=== PATIENT | female | born 1945 | race Caucasian/White ===

== ENCOUNTER → 2021-02-01 08:18 | Outpatient (CLI) | payer MEDICARE, BC, SELFPAY ==
--- NOTE | 2021-02-01 08:46 | RAD_ITS ---
STUDY: X-RAY CHEST REASON FOR EXAM: Female, 75 years old. Chest pain TECHNIQUE: PA and lateral views of the chest. COMPARISON: None. FINDINGS: The lungs are clear and expanded. Scattered calcified granulomas. There is no demonstrated pleural abnormality. There is borderline cardiomegaly. Normal mediastinum and gissel. Normal visualized pulmonary arteries. There is atherosclerotic tortuosity of the aortic arch and descending thoracic aorta. There are diffuse degenerative changes of the visualized thoracic spine. Normal visualized ribs, clavicles, and shoulders. There is no demonstrated abnormality of the visualized soft tissue structures of the upper abdomen. RAD/Chest PA and Lateral IMPRESSION: Borderline cardiomegaly. Electronically Signed: Nader Emery MD at 9:04 EDT , Service support ,
[2021-02-01 09:04] LABS: International Normalized Ratio 0.9; Prothrombin Time (Protime)PT. 11.9 SECONDS (11.7-14.9)
[2021-02-01 09:05] LABS: Partial Thromboplast Time 28.1 Seconds (24.1-36.2)
[2021-02-01 09:21] LABS: AST(SGOT) 22 U/L (15-37); Alanine Aminotransfer ALT/SGPT 36 U/L (13-56); Albumin, Serum 3.2 g/dL (3.2-5.0); Alkaline Phosphatase 111 U/L (45-117); Anion Gap 8 (5-15); BUN 25 mg/dL (7-18); BUN/Creat Ratio 22.1 RATIO (10-20); Bilirubin, Direct 0.11 mg/dL (0.00-0.30); Calcium,Total 11.2 mg/dL (8.5-10.1); Chloride 104 mmol/L (98-107); Cholesterol 219 mg/dL (200); Creatinine, Serum 1.13 mg/dL (0.55-1.02); EST Glomerular Filtration Rate 50 mL/min (>60); Est Glom Filt Rate - Afr Amer 61 mL/min (>60); Globulin 3.9 g/dL (2.2-4.2); Glucose 264 mg/dL (74-106); High Density Lipoprotein 34 mg/dL; Potassium 4.8 mmol/L (3.5-5.1); Protein, Total 7.1 g/dL (6.4-8.2); Sodium Level 131 mmol/L (136-145); Triglycerides 306 mg/dL; Very Low Density Lipoprotein 61 mg/dL (5-40)
== END ==
PROVIDERS: Referring Provider Internal Medicine Cardiovascular Disease; Visit Provider Internal Medicine Cardiovascular Disease
DX: I10 Essential (primary) hypertension (principal); R07.9 Chest pain, unspecified; R06.02 Shortness of breath; E78.00 Pure hypercholesterolemia, unspecified; I25.709 Atherosclerosis of coronary artery bypass graft(s), unspecified, with unspecified angina pectoris
CPT/HCPCS: 36415; 71046; 80048; 80061; 80076; 85610; 85730

== ENCOUNTER → 2021-02-09 13:55 | Outpatient (CLI) | payer MEDICARE, BC, SELFPAY ==
--- NOTE | 2021-02-09 13:56 | ECHOD_ITS ---
Reason For Study: Chest Pain Procedure This was a 2D Doppler, Color Flow transthoracic echocardiogram. The study was technically difficult. Exam performed in department. Left Ventricle Normal LV size. Left ventricular systolic function is normal. The estimated ejection fraction is 65 %. Diastolic function is indeterminate. No regional wall motion abnormalities noted. Right Ventricle Normal RV size. Normal systolic function. Atria Normal left atrium. Normal right atrium. No doppler evidence for ASD. Mitral Valve There is no mitral annular calcification. Normal mitral valve. Trivial mitral valve insufficiency. Tricuspid Valve Normal tricuspid valve. Trivial tricuspid valve insufficiency. Unable to estimate RV systolic pressure/pulmonary artery pressure due to technically difficult study. Aortic Valve Trisinus/trileaflet aortic valve. Mild diffuse aortic valve thickening. Pulmonic Valve The pulmonic valve is not well visualized. Great Vessels The aortic root is not well visualized. Pericardium/Pleural No pericardial effusion. MMode/2D Measurements & Calculations LVIDd: 4.7 cm IVSd: 1.1 cm LA dimension: 3.0 cm LVIDs: 2.9 cm LVPWd: 1.1 cm FS: 39.0 % LAV(MOD-bp): 43.6 ml LA A4 area: 15.7 cm2 RA A4 area: 14.8 cm2 LAV(MOD-bp) Indexed: 21.8 ml/m2 LAV(MOD-sp2): 36.1 ml LAV(MOD-sp4): 45.0 ml Time Measurements MV dec time: 0.34 sec Doppler Measurements & Calculations MV E max gustavo: 60.8 cm/sec Lat Peak E' Gustavo: 3.9 cm/sec Med Peak E' Gustavo: 8.8 cm/sec MV A max gustavo: 114.3 cm/sec E/E' lat: 15.5 E/E' med: 6.9 MV E/A: 0.53 MV V2 max: 139.6 cm/sec MV P1/2t max gustavo: 97.3 cm/sec Ao V2 max: 152.5 cm/sec MV max P.8 mmHg MV P1/2t: 60.6 msec Ao max P.3 mmHg MV V2 mean: 67.6 cm/sec MV dec slope: 470.1 cm/sec2 MV mean P.2 mmHg MVA(P1/2t): 3.6 cm2 MV V2 VTI: 33.4 cm LV V1 max: 93.2 cm/sec PA V2 max: 87.6 cm/sec LV V1 max P.5 mmHg ECHO/Echo Complete Interpretation Summary The study was technically difficult. Left ventricular systolic function is normal. The estimated ejection fraction is 65 %. Trivial mitral valve insufficiency. Trivial tricuspid valve insufficiency. Mild diffuse aortic valve thickening. Unable to estimate RV systolic pressure/pulmonary artery pressure due to techni katiuska difficult study. Diastolic function is indeterminate. Ordering Physician: Carlos Rondon Referring Physician: Carlos Rondon Performed By: Jarek Holt RCS
== END ==
PROVIDERS: Referring Provider Internal Medicine Cardiovascular Disease; Visit Provider Internal Medicine Cardiovascular Disease
DX: I25.709 Atherosclerosis of coronary artery bypass graft(s), unspecified, with unspecified angina pectoris (principal); R06.02 Shortness of breath; R07.9 Chest pain, unspecified
CPT/HCPCS: 93306

== ENCOUNTER 2021-02-22 07:45 | Day surgery (SDC) | payer MEDICARE, BC, SELFPAY ==
[2021-02-21 07:27] VITALS: BMI 46.0
--- NOTE | 2021-02-21 13:14 | PCM.HP.BLA ---
History and Physical Date of Admission: 02/22/21 [facility] [address] [place] [address] [phone] OFFICE VISITDate of Service: 01/27/21 MR#:[id number]: LISA DE LA PAZ #:[id number]:1945 Provider:Vickie Walton/Sex: 75/F Location:[facility]:Signed HPI HPI History of Present Illness Surgical H&P: Yes Details: This is a 75-year-old white female who presents today for outpatient cardiovascular consultation based upon concerns of minimal exertional chest discomfort/heaviness/left upper extremity discomfort/shortness of breath/dyspnea/cold sweats . She had previously been evaluated in July 2009. At that time she had worked through noninvasive evaluation including a transthoracic echocardiogram, a pharmacologic stress nuclear imaging study, and a diagnostic cardiac catheterization. 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 There was impaired relaxation of the left ventricle. Her previous pharmacologic stress nuclear imaging study was reported as negative. However based upon ongoing concerns she underwent a diagnostic cardiac catheterization at 08-04-2009 at [facility]. Per the report the left ventricle was normal with an LVEF of 63%, the LAD, first diagonal branch, and LCx were reported as having 10% stenosis. The RCA was reported as being angiographically normal. She notes now, after being a uterine carcinoma survivor at 5 years out, that over the last 3+ months she has been developing the aforementioned symptoms. She states with very minimal exertional activity she can develop a chest heaviness/left upper extremity discomfort, become short of breath and dyspneic, break out in a cold sweat , and noticed relief of her symptoms when she is back at rest. She has not had symptoms at rest or at night. There is been no orthopnea or PND or ongoing peripheral pitting edema. There is been no near syncope or syncope. She had an ECG in the office today. She was noted be in sinus rhythm with poor R wave progression. To the best of her knowledge she has not had any other cardiovascular testing performed. She states she follows with her PCP in [place]. She has had her lipids checked. She knows they are elevated. However she has declined medical therapy with statins based on concerns of intolerance. Intake Vital Signs 01/27/21 13:40 Height 5 ft Weight: 236 lb BMI 46.0 BP 187/94 H Respiration 18 Pulse 88 Pulse Oximetry (%) 97 Intake Visit Reasons: Chest pressure/ SOB/Fatigue/Self ref. Allergies Penicillins Allergy (Unknown, Verified 01/27/21 13:40) Swelling/Hives Medications aspirin 81 mg chewable tablet 81 mg PO DAILY 01/18/21 [History Confirmed 01/27/21] atenolol 50 mg tablet 50 mg PO DAILY 01/18/21 [History Confirmed 01/27/21] insulin NPH isoph U-100 human 100 unit/mL (3 mL) subcutaneous pen 25 unit SUBCUT BID 01/18/21 [History Confirmed 01/27/21] insulin regular human 100 unit/mL injection solution 25 unit SUBCUT BID 01/18/21 [History Confirmed 01/27/21] lisinopril 40 mg tablet 40 mg PO DAILY 01/18/21 [History Confirmed 01/27/21] multivitamin 1 tab PO DAILY 01/18/21 [History Confirmed 01/27/21] cholecalciferol (vitamin D3) 125 mcg (5,000 unit) capsule 125 mcg PO DAILY 01/27/21 [History Confirmed 01/27/21] isosorbide mononitrate 30 mg tablet,extended release 24 hr 30 mg PO DAILY #30 tab 01/27/21 [Rx Confirmed 01/27/21] Ejection fraction %: 60 to 64 [facility] Medical History (Updated 01/27/21 @ 14:[address] Carlos Rondon MD) CAD (coronary artery disease) of artery bypass graft Essential hypertension Morbid obesity Pure hypercholesterolemia Type 2 diabetes mellitus Uterine cancer Surgical History History of hemorrhoidectomy History of hysterectomy History of tonsillectomy Family History Father Heart disease History of prostate cancer Mother Diabetes Heart disease Social History Smoking Status: Never smoker alcohol intake: never substance use type: does not use ROS Const Const: Positive for fatigue (New onset past 3 nonths with little activity); Negative for weakness, headache(s), frequent falls, difficulty sleeping or excessive sweating Eyes Eyes: Negative for loss of peripheral vision, transient loss of vision, blurry vision, double vision or tunnel vision ENT ENT: Negative for headache(s), dizziness, Nosebleed/epistaxis or balance problems Cardio Chest Pain: Yes (LUE numbness x 1 episode while standing at the stove) Palpitations: No Edema: None Muscle aches with walking: None Additional Details: Episodes of breaking out in cold sweat with activity Resp Respiratory: Positive for SOB with activity (with little activity and she becomes nauseated); Negative for SOB at rest, SOB orthopnea\SOB lying down, Cough or paroxysmal nocturnal dyspnea GI GI: Negative nausea, vomiting, heartburn or black,tarry stools : Negative for hematuria Musc Musc: Negative for muscle aches/ myalgia, muscle weakness, joint pain or balance problems Skin Skin: Negative non-healing lesions, rash or unusual bruising Neuro Neuro: Negative for dizziness, lightheadedness, near syncope, syncope, orthostatic symptoms, frequent falls, headache(s), weakness, blurry vision, double vision or lack of coordination Neil Hematologic/Lymphatic: Negative for easy bleeding or easy bruising Endo Endo: Positive for fatigue (New onset past 3 nonths with little activity); Negative for excessive sweating or increased thirst/drinking Psych Psych: Negative for anxiety or depression Allergy Allergy/Immunology: Negative for hives and Negative for rash Cardiology Exam Const Appearance: cooperative, healthy appearing, comfortable, no acute distress, well developed and well groomed Nutritional Appearance: obese Orientation: alert, awake and oriented x3 Head Head: normal to inspection, normocephalic and atraumatic Ears: hearing grossly normal bilaterally Nose: external nose normal Face and Sinus: face symmetric Eyes Eyelids: eyelids normal Conjunctivae: conjunctivae normal Pupils: PERRL EOM: EOM intact bilaterally Neck Neck: normal visual inspection Carotids: normal carotid upstroke Chest Chest inspection: normal inspection of the chest, symmetric chest movement and normal respiratory effort Auscultation: Bilateral: Clear to Auscultation Cardio Palpation: normal PMI Rate: regular rate Rhythm: regular rhythm Heart sounds: S1 normal and S2 normal GI GI: normal to inspection, soft, bowel sounds present and obese Neuro General: patient alert, patient awake, patient oriented x3 and moves all extremities Skin Skin: no rashes or lesions noted Extremities Pulses: Normal: Right Radial Pulse and Left Radial Pulse Lower Extremity Edema: None: Bilateral Psych Psychological: normal affect Assessment and Plan Assessment and Plan (1) CAD (coronary artery disease) of artery bypass graft: Status: Acute Orders: Orders: Left Heart Cath/COR/LV Percut Today Basic Metabolic Profile (BMP) Today Lipid Profile 1 Day Liver Profile 1 Day Partial Thromboplast Time Today Prothrombin Time w/INR Today Echo Complete Today CBC W/Diff, Automated Today Chest PA and Lateral Today Plan - Dr. Carlos Rondon MD: At the present time she does have a history of CAD. In the past it was been described as very minimal to mild. However her symptoms at this time do appear to be concerning worsening angina pectoris. Thus the present time she will start medical therapy which will include isosorbide mononitrate at 30 mg a day. She will be scheduled for further evaluation with a transthoracic echocardiogram to reassess her left ventricular wall motion systolic function and a diagnostic cardiac catheterization to assess her coronary anatomy. The procedure and risk were discussed with her. She was agreeable to this approach. (2) Chest pain: Status: Acute Orders: Orders: 12 Lead EKG performed by BMS Today Left Heart Cath/COR/LV Percut Today 12 Lead EKG performed by BMS Today Basic Metabolic Profile (BMP) Today Lipid Profile 1 Day Liver Profile 1 Day Partial Thromboplast Time Today Prothrombin Time w/INR Today Echo Complete Today CBC W/Diff, Automated Today Chest PA and Lateral Today Plan - Dr. Carlos Rondon MD: Again she is complaining of chest pain. The concern is this is worsening angina pectoris. She will continue evaluation care as noted above. (3) SOB (shortness of breath): Status: Acute Orders: Orders: 12 Lead EKG performed by BMS Today Left Heart Cath/COR/LV Percut Today 12 Lead EKG performed by BMS Today Basic Metabolic Profile (BMP) Today Lipid Profile 1 Day Liver Profile 1 Day Partial Thromboplast Time Today Prothrombin Time w/INR Today Echo Complete Today CBC W/Diff, Automated Today Chest PA and Lateral Today Plan - Dr. Carlos Rondon MD: Her shortness of breath may be multifactorial. Certainly there is a concern from a cardiovascular standpoint for which she will undergo further evaluation care. She also admits she notes her shortness of breath can potentially come from her combination of age, obesity, and diminished functional status as well. (4) Pure hypercholesterolemia: Status: Acute Orders: Orders: 12 Lead EKG performed by BMS Today Left Heart Cath/COR/LV Percut Today 12 Lead EKG performed by BMS Today Basic Metabolic Profile (BMP) Today Lipid Profile 1 Day Liver Profile 1 Day Partial Thromboplast Time Today Prothrombin Time w/INR Today Echo Complete Today CBC W/Diff, Automated Today Chest PA and Lateral Today Plan - Dr. Carlos Rondon MD: She will have her lipids rechecked. She does not want to take statin medication based on previous concerns of intolerance. She may have to consider nonstatin therapy to assist with her cardiovascular risk. (5) Essential hypertension: Status: Acute Orders: Orders: Left Heart Cath/COR/LV Percut Today Basic Metabolic Profile (BMP) Today Lipid Profile 1 Day Liver Profile 1 Day Partial Thromboplast Time Today Prothrombin Time w/INR Today Echo Complete Today CBC W/Diff, Automated Today Chest PA and Lateral Today Plan - Dr. Carlos Rondon MD: She has a history of hypertension. She believes her blood pressures have been better controlled. Based upon her PCP note from earlier this year in [place] her blood pressure at that time was reported at approximately 130/72 mmHg. She will continue her medical therapy as noted above with follow-up of her blood pressures and adjustment of medications as deemed necessary. Plan Details Other Medications: New: isosorbide mononitrate ER 30 mg PO DAILY 30 tabs 3RF Other Orders: Orders: 12 Lead EKG performed by BMS Today R53.83 Left Heart Cath/COR/LV Percut Today I20.9 12 Lead EKG performed by BMS Today R53.83 Basic Metabolic Profile (BMP) Today I20.9 Lipid Profile 1 Day I20.9 Liver Profile 1 Day I20.9 Partial Thromboplast Time Today I20.9 Prothrombin Time w/INR Today I20.9 Echo Complete Today I20.9 CBC W/Diff, Automated Today I20.9 Chest PA and Lateral Today I20.9 Additional Comments: The above was discussed with her and she was agreeable to this approach. Thank you for allowing me to participate in the care of your patient. Please don't hesitate to call if any issues arise. This note was generated using a voice recognition system and there may be incorrect words, spelling or punctuation that were not noted when reviewing the office note prior to saving. Follow Up: 6 Weeks (PFM ) COVID (Procedure Consent) Procedure Criteria Procedure Criteria: Yes Elective The surgeon/proceduralist and patient have discussed in detail the risk of exposure to and/or potential harm posed by the COVID-19 virus with having a surgery/procedure at this time versus the risk of delaying the surgery/procedure. It is not possible to know either the risk of delaying the surgery or procedure or chance of getting an infection with perfect accuracy, but a joint decision was made between the patient and the surgeon/proceduralist to proceed at this time with the scheduled surgery/procedure as indicated on the consent form. Coding Level of Care Code Off vis,new,level 5 Diagnoses CAD (coronary artery disease) of artery bypass graft I25.810 Chest pain R07.9 SOB (shortness of breath) R06.02 Pure hypercholesterolemia E78.00 Essential hypertension I10 Coding Level of Care Code Off vis,new,level 5 Diagnoses CAD (coronary artery disease) of artery bypass graft I25.810 Chest pain R07.9 SOB (shortness of breath) R06.02 Pure hypercholesterolemia E78.00 Essential hypertension I10 Supplemental Info Supplemental Information Labs: No Data to Display Diagnostics: Electrocardiogram Pulmonary: No Data to Display 01/27/21 1442<Electronically signed by Carlos Rondon MD>Date Carlos Rondon MD Cosigner Signature:Date (if applicable) CC: ~ Assessment & Plan Addt'l Comments Addendum: I have examined the patient the following changes are noted: The patient has undergone further evaluation with transthoracic echocardiogram performed on 02-09-2021. The results are as noted below. Interpretation Summary The study was technically difficult. Left ventricular systolic function is normal. The estimated ejection fraction is 65 %. Trivial mitral valve insufficiency. Trivial tricuspid valve insufficiency. Mild diffuse aortic valve thickening. Unable to estimate RV systolic pressure/pulmonary artery pressure due to technically difficult study. Diastolic function is indeterminate. The patient presents for further evaluation with diagnostic cardiac catheterization as previously discussed. The procedure and risks were discussed with her. She was agreeable to this approach.
[2021-02-22 08:03] LABS: Hematocrit 41.1 % (37-47); Mean Corp Hgb Conc 34.1 g/dL (32-36); Mean Corpuscular Hgb 30.4 pg (27.0-32.0); Mean Corpuscular Volume 89.2 fL (81-99); Mean Platelet Vol. 10.2 fl (6.2-12.0); Platelet Count 264 K/mm3 (150-450); RBC Distribution Width CV 13.8 % (11.6-14.6); RBC Distribution Width SD 44.6 fl (35.1-43.9); Red Blood Count 4.61 M/mm3 (4.2-5.4); White Blood Count 9.5 K/mm3 (4.4-11.0)
--- NOTE | 2021-02-22 11:00 | CL.I_ITS ---
Patient Name: LISA DE LA PAZ Study Date: 02/22/2021 Performing: Marlee Guillory MD Ht: 59.84 inches 152 cm : 1945 Wt: 235.89 lbs 107 kg Age: 75 Gender: female BSA: 2 PROCEDURE(S) PERFORMED EJ74-GNP, CORONARY OR GRAFT, INITIAL VESSEL GI07-QSM W OR WO PTCA, SINGLE CORONARY ARTERY CLINICAL PROFILE AND CO-MORBIDITIES Indications: Worsening Angina Heart Failure: None Stress/Imaging Stress/Image Study Performed: No Angina Classification Anginal Classification w/in 2 Weeks: CCS III CAD Presentations: Other: worsening angina CONCLUSIONS FFR in the LAD was 0.94 which is consistent with a stenosis that is better treated medically at this time. Successful PCI of pD1 with JUAN RECOMMENDATIONS DESCRIPTION OF PROCEDURE The patient arrived to the procedure lab. The risks and benefits of the procedure as well as a full d escription of our services here and current unavailability of surgical backup were fully explained to the patient and/or their significant other prior to the catheterization. The Timeout was completed, verifying the correct patient and procedure. The patient's procedural site was prepped and draped in the usual fashion. Local anesthetic was given subcutaneously to right radial region with Lidocaine 2% Using a modified Seldinger technique,arterial access was obtained via the right radial artery, a 6Fr sheath was inserted. Right Coronary Artery selective angiography was then performed in multiple view s using a 5 Fr. 4.0 Brixey catheter. Left Coronary Artery selective angiography was performed in multi ple views using a 5 Fr. 4.0 Brixey catheter. Left Ventriculography was performed in BARNES projection usi ng a 5 Fr. Pigtail catheter. LV to AO pullback pressures were then recorded.The images were reviewed and options discussed. A decision was then made to proceed with an Intervention, IVUS o r other adjunct procedure. XB 3.0 Guide catheter was inserted and engaged into the LCA. The FFR/iFR wire was inserted. Adeno sine was then given per protocol. Pressures and FFR/iFR were then recorded. FFR Ratio Baseline: 0.97 FFR Ratio post Adenosine: 0.96 The FFR/iFR wire was then repositioned to Diag #1 Orsiro 2.25x9 Drug E luting stent was inserted. Angiogram performed post stent deployment. NC Emerge 2.25x8 Balloon cathet er was inserted. Angiogram performed post balloon dilatation. The arterial sheath was pulled and a TR Band was applied for hemostasis w/ 12ml air INTERVENTION INFORMATION LESION SITE: LAD (Mid) Lesion Complexity: High/C, chronic total occlusion: No, lesion at bifurcation: Yes, thrombus present: No, lesion length: 15 mm, culprit lesion: No, Previously treated lesion: No PROCEDURE: FFR FFR in the LAD was 0.94 Lesion Devices: IGT Devices ( Formerly Roma) Coronary FFR Wire Cardinal 6 Fr XB3.0 100cm Guide Catheter LESION SITE: 1st Diagonal (Proximal) Lesion Complexity: High/C, chronic total occlusion: No, lesion at bifurcation: No, thrombus present: No, lesion length: 7 mm, culprit lesion: Yes, Previously treated lesion: No Pre Stenosis: 85 % Pre intervention OLGA flow: 3 PROCEDURE: Drug Eluting Stent with post dilatation Post Stenosis: 0 % Post intervention OLGA flow: 3 Lesion Devices: IGT Devices ( Formerly Roma) Coronary FFR Wire Cardinal 6 Fr XB3.0 100cm Guide Catheter Biotronik [facility] MR JUAN 2.25x9 [employer] NC EMERGE MR 2.25x08 BALLOON COMPLICATIONS No Complications PROCEDURE MEDICATIONS Versed 1 mg IV Fentanyl 50 mcg IV Oxygen: 2 L/min via nasal cannula Brilinta 180 mg PO 02/22/2021 09:47:36 Adenosine drip for FFR 30 ml IV @ 02/22/2021 10:20:25 Heparin given IA 02/22/2021 09:33:05 Heparin 6000 unit(s) IV 02/22/2021 10:11:34 Verapamil 2.5mg, Ntg 100mcgs, 3000 units of Heparin given IA 02/22/2021 09:33:05 SUMMARY OF HEMODYNAMIC DATA Time AIR REST ECG 08:19:12 Art 209/66 (105) 09:25:55 AO 170/69 (107) SA 09:35:11 LV 204/-8, 09:45:15 LV 203/-6, 09:45:22 LV 203/1, 33 09:46:22 LV 201/-7, 09:46:30 LVp 194/-11, 09:46:35 AOp 183/68 (112) 09:46:41 AO 197/73 (121) 09:47:01 Signed By Marlee Guillory MD On 02/22/2021 10:59:20 Marlee Guillory MD
--- NOTE | 2021-02-22 11:21 | CRPHASE1 ---
Patient Communication PHII Cardiac Rehab Discussed with Patient:: Yes Guide to Cardiac Rehab Given to Patient:: Yes Cardiac Rehab Facility Choice List Given to Patient:: Yes - Pt going to [facility] FOR SIX MONTHS IN FEW WEEKS Choice Program Other:: Communication Given to CR Systems Design Engineer:: Wing Guillory - Intervention doctor Refer Phase II Cardiac Rehab:: Yes - To occur after discharge Sessions:: 36 sessions - 3 days/wk, 12 weeks Cardiac Rehabilitation Info Cardiac Rehabilitation Program Information: Cardiac Rehabilitation is important for patients like you who are recovering from a heart problem. Cardiac rehabilitation programs are recognized as integral to the continued care of the patient with coronary heart disease. The cardiac rehabilitation program is designed to optimize a patient's physical, psychological, and social functioning. Health child day care teacher work in cardiac rehabilitation programs and assist you with getting the treatments you need to get stronger and healthier - like exercise, healthy eating habits, and medications. Cardiac rehabilitation has been show to help people with heart problems live longer and have better life enjoyment than people who do not go to cardiac rehabilitation. Please contact the Cardiac Rehabilitation Program at [facility] at in two weeks if you have not heard from them.
--- NOTE | 2021-02-22 11:27 | CRPH1.INSTRU ---
General Education CAD and cardiac anatomy and function:: Patient communicates acknowledgment Explanation of diagnoses and procedures:: Patient communicates acknowledgment Sign/Symptoms of NE:: Patient communicates acknowledgment Antiplatelet therapy: Patient communicates acknowledgment Proper use of NTG-SL: Patient communicates acknowledgment Emergency procedures and activation of EMS: Patient communicates acknowledgment Compliance of all prescribed medications: Patient communicates acknowledgment Overweight/Obesity Patient Overweight/Obesity Risk Factors Are:: Obesity - > or = 30 Recommendations Include:: Weight loss of 5-10%, Reduced calorie diet Overweight/Obesity:: Needs reinforcement Hypertension Recommendations Include:: Maintain BP <130/85, BP <130/80 if diabetic, DASH dietary guidelines, Decrease/maintain normal body weight, Moderation of ETOH Hypertension:: Needs reinforcement Sedentary Patient Sedentary Risk Factors Are:: Lack of regular exercise Recommendations Include:: Aerobic exercise 5-7 times/week for 20-30 minutes continuously, Benefits of regular exercise, Discussed home walking program, Monitored Outpatient Cardiac Rehab Sedentary Response Code:: Needs reinforcement
--- NOTE | 2021-02-22 11:40 | CL.D_ITS ---
Patient Name: LISA DE LA PAZ Study Date: 02/22/2021 Performing: Carlos Rondon MD Ht: 59.84 inches 152 cm : 1945 Wt: 235.89 lbs 107 kg Age: 75 Gender: female BSA: 2 PROCEDURE(S) PERFORMED [id number]-RFO/COR/LV [id number], CORONARY OR GRAFT, INITIAL VESSEL [id number] W OR WO PTCA, SINGLE CORONARY ARTERY CLINICAL PROFILE AND INDICATIONS Indications: Worsening Angina Heart Failure: None Stress/Imaging Stress/Image Study Performed: No Angina Classification Anginal Classification w/in 2 Weeks: CCS III CAD Presentations: Other: worsening angina CONCLUSIONS Elevated Left Ventricular End Diastolic Pressure Normal LV size, wall motion,and systolic function LVEF: by LV gram 60 % Triple vessel CAD of the LAD, DX, and RCA RECOMMENDATIONS Referred for FFR and possible PCI Case discussed / reviewed with Dr. Guillory of Interventional Cardiology DESCRIPTION OF PROCEDURE The patient arrived to the procedure lab. The risks and benefits of the procedure as well as a full d escription of our services here and current unavailability of surgical backup were fully explained to the patient and/or their significant other prior to the catheterization. The Timeout was completed, verifying the correct patient and procedure. The patient's procedural site was prepped and draped in the usual fashion. Local anesthetic was given subcutaneously to right radial region with Lidocaine 2% . Using a modified Seldinger technique, arterial access was obtained via the right radial artery, a 6 Fr sheath was inserted. Right Coronary Artery selective angiography was then performed in multiple v iews using a 5 Fr. 4.0 [place] catheter. Left Coronary Artery selective angiography was performed in mu ltiple views using a 5 Fr. 4.0 [place] catheter. Left Ventriculography was performed in BARNES projection using a 5 Fr. Pigtail catheter. LV to AO pullback pressures were then recorded.The arterial sheath was pulled and a TR Band was applied for hemostasis w/ 12ml air CORONARY ANGIOGRAPHY DOMINANCE: Right Dominant LEFT HEART ASSESSMENT Left Ventricular Ejection Fraction: by LV Gram 60 % Normal LV wall motion Elevated Left Ventricular End Diastolic Pressure LVEDP: 27 mmHg LEFT MAIN: Angiographically normal LEFT ANTERIOR DESCENDING ARTERY: PROX LAD: pre DX: smooth: 25 - 50 % Stenosis MID LAD: s/p DX: smooth: 25 - 50 % Stenosis DIAGONAL 2: Proximal: hazy: 85 % Stenosis CIRCUMFLEX ARTERY: Angiographically normal RIGHT CORONARY ARTERY: PROX RCA: smooth: eccentric: 25 % Stenosis AORTIC ROOT: Angiographically normal COMPLICATIONS No Complications PROCEDURE MEDICATIONS Versed 1 mg IV Fentanyl 50 mcg IV Oxygen: 2 L/min via nasal cannula Brilinta 180 mg PO 02/22/2021 09:47:36 Adenosine drip for FFR 30 ml IV @ 02/22/2021 10:20:25 Heparin given IA 02/22/2021 09:33:05 Heparin 6000 unit(s) IV 02/22/2021 10:11:34 Verapamil 2.5mg, Ntg 100mcgs, 3000 units of Heparin given IA 02/22/2021 09:33:05 SUMMARY OF HEMODYNAMIC DATA Time AIR REST ECG 08:19:12 Art 209/66 (105) 09:25:55 AO 170/69 (107) SA 09:35:11 LV 204/-8, 30 09:45:15 LV 203/-6, 27 09:45:22 LV 203/1, 33 09:46:22 LV 201/-7, 27 09:46:30 LVp 194/-11, 30 09:46:35 AOp 183/68 (112) 09:46:41 AO 197/73 (121) 09:47:01 RM AIR REST 10:59:07 Signed By Carlos Rondon MD On 02/22/2021 11:39:37 Carlos Rondon MD
[2021-02-22 15:04] VITALS: BMI 47.0
[2021-02-22 15:06] VITALS: PULSE 63
--- NOTE | 2021-02-22 15:14 | PCS.PANDOC ---
PANDEMIC DOCUMENTATION INITIATED: Date: 01/03/2021 Time: 190
[2021-02-22 15:24] VITALS: BP 167/68; PULSE 59; RESP 16; TEMP 36.6; O2SAT 98
[2021-02-22] MEDS: 0.9% Normal Saline 1,000 ML 60 ML IV (15:37)
[2021-02-22] MEDS: Insulin NPH Human 100 UNITS/ML PEN 25 UNITS SC (16:22)
[2021-02-22] MEDS: Insulin Lispro 100 UNIT/ML INSULN.PEN 25 UNIT SC (16:22)
[2021-02-22 16:30] LABS: Bedside Glucose 233 mg/dL (70-110)
--- NOTE | 2021-02-22 17:47 | PN.CARD_ITS ---
Subjective Subjective The patient underwent diagnostic cardiac catheterization earlier this day. She subsequently received diagonal branch PCI. She appears to be resting comfortably at this time with no acute symptoms. Objective Data Vital Signs: Vital Signs Temp Pulse Resp BP Pulse Ox 97.9 F 59 L 16 167/68 H 98 02/22/21 15:24 02/22/21 15:24 02/22/21 15:24 02/22/21 15:24 02/22/21 15:24 Oxygen Delivery Method Room Air Weight: 240 lb 9 oz Body Mass Index (BMI) 47.0 Lab / Micro Data Result Diagrams: 02/22/21 07:53 Labs: Laboratory Results - last 24 hr 02/22/21 07:53: WBC 9.5, RBC 4.61, Hgb 14.0, Hct 41.1, MCV 89.2, MCH 30.4, MCHC 34.1, RDW Std Deviation 44.6 H, RDW Coeff of Roderick 13.8, Plt Count 264, MPV 10.2 02/22/21 16:20: POC Glucose 233 H Cardiology Labs/Tests 02/22/21 07:53: WBC 9.5, RBC 4.61, Hgb 14.0, Hct 41.1, MCV 89.2, MCH 30.4, MCHC 34.1, Plt Count 264, MPV 10.2 Rhythm: Sinus rhythm Cardiac Cath: CONCLUSIONS Elevated Left Ventricular End Diastolic Pressure Normal LV size, wall motion,and systolic function LVEF: by LV gram 60 % Triple vessel CAD of the LAD, DX, and RCA RECOMMENDATIONS Referred for FFR and possible PCI Case discussed / reviewed with Dr. Guillory of Interventional Cardiology DESCRIPTION OF PROCEDURE The patient arrived to the procedure lab. The risks and benefits of the pr ocedure as well as a full description of our services here and current unavailability of surgical backup were fully explained to the patient and/or their significant other prior to the catheterization. The Timeout was completed, verifying the correct patient and procedure. The patient's procedural site was prepped and draped in the usual fashion. Local anesthetic was given subcutaneously to right radial region with Lidocaine 2%. Using a modified Seldinger technique, arterial access was obtained via the right radial artery, a 6Fr sheath was inserted. Right Coronary Artery selective angiography was then performed in multiple views using a 5 Fr. 4.0 [place] catheter. Left Coronary Artery selective angiography was performed in multiple views using a 5 Fr. 4.0 [place] catheter. Left Ventriculography was performed in BARNES projection using a 5 Fr. Pigtail catheter. LV to AO pullback pressures were then recorded.The arterial sheath was pulled and a TR Band was applied for hemostasis w/ 12ml air CORONARY ANGIOGRAPHY DOMINANCE: Right Dominant LEFT HEART ASSESSMENT Left Ventricular Ejection Fraction: by LV Gram 60 % Normal LV wall motion Elevated Left Ventricular End Diastolic Pressure LVEDP: 27 mmHg LEFT MAIN: Angiographically normal LEFT ANTERIOR DESCENDING ARTERY: PROX LAD: pre DX: smooth: 25 - 50 % Stenosis MID LAD: s/p DX: smooth: 25 - 50 % Stenosis DIAGONAL 2: Proximal: hazy: 85 % Stenosis CIRCUMFLEX ARTERY: Angiographically normal RIGHT CORONARY ARTERY: PROX RCA: smooth: eccentric: 25 % Stenosis AORTIC ROOT: Angiographically normal COMPLICATIONS No Complications PCI: PROCEDURE(S) PERFORMED [id number], CORONARY OR GRAFT, INITIAL VESSEL [id number] W OR WO PTCA, SINGLE CORONARY ARTERY CLINICAL PROFILE AND CO-MORBIDITIES Indications: Worsening Angina Heart Failure: None Stress/Imaging Stress/Image Study Performed: No Angina Classification Anginal Classification w/in 2 Weeks: CCS III CAD Presentations: Other: worsening angina CONCLUSIONS FFR in the LAD was 0.94 which is consistent with a stenosis that is better treated medically at this time. Successful PCI of pD1 with JUAN Physical Exam Const alert, oriented x3, no apparent distress and healthy appearing Orientation / Consciousness: awake HEENT normocephalic, head/scalp atraumatic and hearing grossly normal bilaterally Eyes PERRL, EOMs intact bilaterally and conjunctivae normal Neck full ROM, supple and no JVD Resp clear to auscultation bilaterally Cardio regular rate, regular rhythm, S1 normal heart sound and S2 normal heart sound GI normal to inspection, nondistended, normoactive bowel sounds Extremity Peripheral Pulses: Yes radial pulses present right (No obvious bruits: No obvious hematoma) 2+ Skin no rashes or lesions noted Psych mental status grossly normal Assessment & Plan Assessment/Plan (1) Atherosclerotic heart disease of [place] coronary artery without angina pectoris: PLAN: The patient has been diagnosed with CAD. She has been on medical management. She has now undergone diagonal branch PCI. She will continue outpatient follow-up and plans for outpatient cardiac rehabilitation. (2) Presence of stent in coronary artery: PLAN: The patient underwent FFR of the LAD which was considered negative. She subsequently underwent diagonal branch PCI. She will continue medical therapy and follow-up. (3) Pure hypercholesterolemia: PLAN: The patient will continue medical management. (4) Essential hypertension: PLAN: The patient's blood pressure will be followed and she will continue medical therapy as deemed appropriate. Addt'l Comments This note was generated using a voice recognition system and there may be incorrect words, spelling or punctuation that were not noted when reviewing the office note prior to saving.
[2021-02-22 18:02] VITALS: O2SAT 97
[2021-02-22 19:00] VITALS: PULSE 60
[2021-02-22 21:25] VITALS: BP 146/62; PULSE 65; RESP 18; TEMP 36.7; O2SAT 98
[2021-02-22] MEDS: TICAGRELOR 90 MG TABLET PO (21:41)
[2021-02-22] MEDS: Atorvastatin Calcium 20 MG Tablet PO (21:41)
[2021-02-22] MEDS: Acetaminophen 325 MG Tablet 650 MG PO (21:41)
[2021-02-22 21:55] LABS: Bedside Glucose 122 mg/dL (70-110)
[2021-02-23 02:58] VITALS: PULSE 47
[2021-02-23 03:27] VITALS: BP 141/66; PULSE 59; RESP 18; TEMP 36.4; O2SAT 98
[2021-02-23 07:14] LABS: Absolute Lymphocyte Count 1.48 X10^3/uL (0.83-4.51); Absolute Neutrophil Count 4.6 X10^3/uL (2.0-7.7); Basophil# 0.07 X10^3/uL; Eosinophil# 0.19 X10^3/uL; Eosinophils% 2.8 % (0-5); Hematocrit 37.2 % (37-47); Hemoglobin 12.8 g/dL (12.0-15.0); Lymphocyte # 1.48 X10^3/ul (0.83-4.51); Lymphocyte % 21.5 % (19-41); Mean Corp Hgb Conc 34.4 g/dL (32-36); Mean Corpuscular Volume 87.3 fL (81-99); Mean Platelet Vol. 10.3 fl (6.2-12.0); Monocyte# 0.58 X10^3/uL; Monocyte% 8.4 % (0-10); NRBC Flagged by Analyzer 0 % (0-5); Neutrophil # 4.55 X10^3/uL (2.7-7.7); Neutrophil % 66.2 % (47-70); Platelet Count 212 K/mm3 (150-450); RBC Distribution Width CV 14.1 % (11.6-14.6); Red Blood Count 4.26 M/mm3 (4.2-5.4); White Blood Count 6.9 K/mm3 (4.4-11.0)
[2021-02-23 07:19] VITALS: PULSE 58
[2021-02-23 07:49] LABS: ALB/GLOB Ratio 1.1 RATIO (0.9-2.4); AST(SGOT) 23 U/L (15-37); Alanine Aminotransfer ALT/SGPT 30 U/L (13-56); Albumin, Serum 3.6 g/dL (3.2-5.0); Alkaline Phosphatase 77 U/L (45-117); Anion Gap 8 (5-15); BUN 20 mg/dL (7-18); Calcium,Total 10.2 mg/dL (8.5-10.1); Chloride 107 mmol/L (98-107); Creatinine, Serum 1.11 mg/dL (0.55-1.02); EST Glomerular Filtration Rate 51 mL/min (>60); Est Glom Filt Rate - Afr Amer 62 mL/min (>60); Estimated Creatinine Clearance 32.42 ml/min; Globulin 3.4 g/dL (2.2-4.2); Glucose 197 mg/dL (74-106); Potassium 4.5 mmol/L (3.5-5.1); Sodium Level 138 mmol/L (136-145)
[2021-02-23 08:14] VITALS: BP 168/69; PULSE 66; RESP 16; TEMP 36.6; O2SAT 92
[2021-02-23] MEDS: Atenolol 50 MG Tablet PO (08:17)
[2021-02-23] MEDS: Aspirin 81 MG TAB.CHEW PO (08:17)
[2021-02-23] MEDS: Multivitamins,Therapeutic Tablet 1 TABLET PO (08:17)
[2021-02-23] MEDS: Isosorbide Mononitrate 30 MG Tablet PO (08:17)
[2021-02-23] MEDS: Lisinopril 40 MG Tablet PO (08:17)
[2021-02-23] MEDS: TICAGRELOR 90 MG TABLET PO (08:17)
[2021-02-23] MEDS: Cholecalciferol (VIT D3) 25 MCG TABLET (1,000 UNITS) 125 MCG PO (08:17)
[2021-02-23] MEDS: Insulin NPH Human 100 UNITS/ML PEN 25 UNITS SC (08:20)
[2021-02-23] MEDS: Insulin Lispro 100 UNIT/ML INSULN.PEN 25 UNIT SC (08:21)
[2021-02-23 08:30] LABS: Bedside Glucose 207 mg/dL (70-110)
--- NOTE | 2021-02-23 08:31 | PCM.DC ---
Discharge Instructions Diet Discharge Diet: Low fat / Low cholesterol and 1800 Calorie Control Diet Activity Discharge Activity: May Not Drive (for 48 hours), May Shower (today) and May Take a Tub Bath (in 7 days) Lifting Restrictions: avoid heavy exertional activity x 2 weeks Dressing / Incision Call your doctor if your incision/area has: Continuous Slow Oozing, Sudden Increased Bleeding, Increased Pain/ Swelling, Increased Redness, Foul Smelling Discharge and Swelling at the incision site Call your doctor if you observe: Fever of 101 or Higher, Shortness of breath, Fainting spells, Chest pain and Increased palpitations (irregular heartbeat) Remove Dressing in: 1 day Cleanse incision/area with: Soap & Water Follow Up Care Please Follow Up With: Mary Gonzales, PA When: 03/14/2021 @ 9:00 AM Test Results: Test results from this visit will be discussed in further detail at your follow-up appointment, if applicable. Discharge Plan Admission Primary Reason for Your Visit: Chest Pain Evaluation with Cardiac Catheterization Attending Provider: Carlos Rondon Discharge Orders/Prescriptions Prescriptions: New Brilinta 90 mg Tablet 90 mg PO BID Qty: 60 RF: 11 Brilinta 90 mg tablet 90 mg PO BID Qty: 60 RF: 11 nitroglycerin 0.4 mg tablet, sublingual 0.4 mg sublingual Q5M PRN (Reason: chest pain) Qty: 90 RF: 6 nitroglycerin 0.4 mg Tablet, Sublingual 0.4 mg sublingual Q5M PRN (Reason: Cardiac/Chest Pain) Qty: 90 RF: 6 Continued cholecalciferol (vitamin D3) 125 mcg (5,000 unit) capsule 125 mcg PO DAILY RF: 0 isosorbide mononitrate 30 mg tablet extended release 24 hr 30 mg PO DAILY Qty: 30 RF: 3 aspirin 81 mg tablet,chewable 81 mg PO DAILY RF: 0 multivitamin Tablet 1 tab PO DAILY RF: 0 Novolin N Flexpen 100 unit/mL (3 mL) insulin pen 25 unit subcut BID RF: 0 Novolin R Regular U-100 Insuln 100 unit/mL solution 25 unit subcut BID RF: 0 atenolol 50 mg tablet 50 mg PO DAILY RF: 0 lisinopril 40 mg tablet 40 mg PO DAILY RF: 0 atorvastatin 20 mg tablet 20 mg PO QHS Qty: 30 RF: 12 Referrals / Follow Up: SIXTO JIMENEZ [Other] Carlos Rondon MD [STAFF PHYSICIAN] - Disposition Disposition (needs filled in before D/C Order can be placed): Home, Self Care
[2021-02-23 10:40] VITALS: O2SAT 92
--- NOTE | 2021-02-23 11:33 | CASEMGMT ---
Kelsy one month free card called to [facility] at this time as pt's co-pay was $218. Mouna SIMS CM
--- NOTE | 2021-02-23 12:04 | DS.PCM_ITS ---
Providers Primary Care Physician: SIXTO JIMENEZ Reason For Visit: CHEST PAIN,DYSPNEA,HTN,HLD,UTERINE CA, OBESITY Diagnosis Discharge Diagnosis (1) Atherosclerotic heart disease of [place] coronary artery without angina pectoris: Status: Acute Code(s): I25.10 - Atherosclerotic heart disease of [place] coronary artery without angina pectoris (2) Presence of stent in coronary artery: Status: Acute Code(s): Z95.5 - Presence of coronary angioplasty implant and graft (3) Pure hypercholesterolemia: Status: Acute Code(s): E78.00 - Pure hypercholesterolemia, unspecified (4) Essential hypertension: Status: Acute Code(s): I10 - Essential (primary) hypertension Medications at Discharge Home Medications aspirin 81 mg chewable tablet 81 mg PO DAILY 01/18/21 atenolol 50 mg tablet 50 mg PO DAILY 01/18/21 insulin NPH isoph U-100 human 100 unit/mL (3 mL) subcutaneous pen 25 unit SUBCUT BID 01/18/21 insulin regular human 100 unit/mL injection solution 25 unit SUBCUT BID 01/18/21 lisinopril 40 mg tablet 40 mg PO DAILY 01/18/21 multivitamin 1 tab PO DAILY 01/18/21 cholecalciferol (vitamin D3) 125 mcg (5,000 unit) capsule 125 mcg PO DAILY 01/27/21 isosorbide mononitrate 30 mg tablet,extended release 24 hr 30 mg PO DAILY #30 tab 01/27/21 atorvastatin 20 mg tablet 20 mg PO QHS #30 tab 02/02/21 nitroglycerin 0.4 mg SUBLINGUAL Q5M PRN #90 tab 02/23/21 nitroglycerin 0.4 mg SUBLINGUAL Q5M PRN #90 tab 02/23/21 ticagrelor [Brilinta] 90 mg PO BID #60 tab 02/23/21 ticagrelor [Brilinta] 90 mg PO BID #60 tab 02/23/21 Hospital Course Procedures Cardiac catheterization and - (Cardiac intervention: PCI) Summary of Care Provided Minutes Spent on Discharge: 45 Hospital Course: The patient presented to [facility] for evaluation of her ongoing chest discomfort with diagnostic cardiac catheterization. The cardiac catheterization was performed. She was noted to have evidence of LAD/diagonal branch disease. The LAD underwent FFR which was reported as negative. The diagonal branch subsequently underwent PTCA/JUAN. The patient was monitored overnight. She appeared to be symptomatically and hemodynamically stable. On this day she was felt stable for release home for continued outpatient cardiovascular follow-up. Physical Exam Const alert, oriented x3, no apparent distress and healthy appearing Orientation / Consciousness: awake HEENT normocephalic, head/scalp atraumatic and hearing grossly normal bilaterally Eyes PERRL, EOMs intact bilaterally and conjunctivae normal Neck full ROM, supple and no JVD Chest Chest: symmetrical chest wall rise Resp clear to auscultation bilaterally Cardio regular rate, regular rhythm, S1 normal heart sound and S2 normal heart sound GI normal to inspection, nondistended, normoactive bowel sounds Extremity Peripheral Pulses: Yes radial pulses present right (No bruit: No hematoma) 2+ Skin no rashes or lesions noted Neuro oriented x3, moves all extremities, no focal motor deficits and no sensory deficits noted Psych mental status grossly normal Weight / BMI Weight Weight: 240 lb 9 oz Body Mass Index (BMI) 47.0 ABG / Lab / Microbiology Data Result Diagrams: 02/23/21 06:30 02/23/21 06:30 Laboratory: Laboratory Results - last 24 hr 02/22/21 16:20: POC Glucose 233 H 02/22/21 21:47: POC Glucose 122 H 02/23/21 06:30: WBC 6.9, RBC 4.26, Hgb 12.8, Hct 37.2, MCV 87.3, MCH 30.0, MCHC 34.4, RDW Std Deviation 45.0 H, RDW Coeff of Roderick 14.1, Plt Count 212, MPV 10.3, Immature Gran % (Auto) 0.100, Neut % (Auto) 66.2, Lymph % (Auto) 21.5, Angelina % (Auto) 8.4, Eos % (Auto) 2.8, Baso % (Auto) 1.0, Absolute Neuts (auto) 4.6, Absolute Lymphs (auto) 1.48, Nucleated RBC % 0 02/23/21 06:30: Sodium 138, Potassium 4.5, Chloride 107, Carbon Dioxide 23.0, Anion Gap 8, BUN 20 H, Creatinine 1.11 H, Estim Creat Clear Calc 32.42, Est GFR (MDRD) Af Amer 62, Est GFR (MDRD) Non-Af 51 L, BUN/Creatinine Ratio 18.0, Glucose 197 H, Calcium 10.2 H, Total Bilirubin 1.10 H, AST 23, ALT 30, Alkaline Phosphatase 77, Total Protein 7.0, Albumin 3.6, Globulin 3.4, Albumin/Globulin Ratio 1.1 02/23/21 08:12: POC Glucose 207 H Cardiac lesion: 02-22-2021 CONCLUSIONS Elevated Left Ventricular End Diastolic Pressure Normal LV size, wall motion,and systolic function LVEF: by LV gram 60 % Triple vessel CAD of the LAD, DX, and RCA RECOMMENDATIONS Referred for FFR and possible PCI Case discussed / reviewed with Dr. Guillory of Interventional Cardiology DESCRIPTION OF PROCEDURE The patient arrived to the procedure lab. The risks and benefits of the procedure as well as a full description of our services here and current unavailability of surgical backup were fully explained to the patient and/or their significant other prior to the catheterization. The Timeout was completed, verifying the correct patient and procedure. The patient's procedural site was prepped and draped in the usual fashion. Local anesthetic was given subcutaneously to right radial region with Lidocaine 2%. Using a modified Seldinger technique, arterial access was obtained via the right radial artery, a 6Fr sheath was inserted. Right Coronary Artery selective angiography was then performed in multiple views using a 5 Fr. 4.0 [place] catheter. Left Coronary Artery selective angiography was performed in multiple views using a 5 Fr. 4.0 [place] catheter. Left Ventriculography was performed in BARNES projection using a 5 Fr. Pig[place] catheter. LV to AO pullback pressures were then recorded.The arterial sheath was pulled and a TR Band was applied for hemostasis w/ 12ml air CORONARY ANGIOGRAPHY DOMINANCE: Right Dominant LEFT HEART ASSESSMENT Left Ventricular Ejection Fraction: by LV Gram 60 % Normal LV wall motion Elevated Left Ventricular End Diastolic Pressure LVEDP: 27 mmHg LEFT MAIN: Angiographically normal LEFT ANTERIOR DESCENDING ARTERY: PROX LAD: pre DX: smooth: 25 - 50 % Stenosis MID LAD: s/p DX: smooth: 25 - 50 % Stenosis DIAGONAL 2: Proximal: hazy: 85 % Stenosis CIRCUMFLEX ARTERY: Angiographically normal RIGHT CORONARY ARTERY: PROX RCA: smooth: eccentric: 25 % Stenosis AORTIC ROOT: Angiographically normal PCI: CONCLUSIONS FFR in the LAD was 0.94 which is consistent with a stenosis that is better treated medically at this time. Successful PCI of pD1 with JUAN D/C Instructions Discharge Diet: Low fat / Low cholesterol and 1800 Calorie Control Diet Call your doctor if your incision/area has: Continuous Slow Oozing, Sudden Increased Bleeding, Increased Pain/ Swelling, Increased Redness, Foul Smelling Discharge and Swelling at the incision site Call your doctor if you observe: Fever of 101 or Higher, Shortness of breath, Fainting spells, Chest pain and Increased palpitations (irregular heartbeat) Cleanse incision/area with: Soap & Water Please Follow Up With: Mary Gonzales PA When: 03/14/2021 @ 9:00 AM Meaningful Use Info Meaningful Use Diagnoses (Choose all that apply): None applicable Discharge Plan Admission Primary Reason for Your Visit: Chest Pain Evaluation with Cardiac Catheterization Attending Provider: Carlos Rondon Discharge Orders/Prescriptions Prescriptions: New Brilinta 90 mg Tablet 90 mg PO BID Qty: 60 RF: 11 Brilinta 90 mg tablet 90 mg PO BID Qty: 60 RF: 11 nitroglycerin 0.4 mg tablet, sublingual 0.4 mg sublingual Q5M PRN (Reason: chest pain) Qty: 90 RF: 6 nitroglycerin 0.4 mg Tablet, Sublingual 0.4 mg sublingual Q5M PRN (Reason: Cardiac/Chest Pain) Qty: 90 RF: 6 Continued cholecalciferol (vitamin D3) 125 mcg (5,000 unit) capsule 125 mcg PO DAILY RF: 0 isosorbide mononitrate 30 mg tablet extended release 24 hr 30 mg PO DAILY Qty: 30 RF: 3 aspirin 81 mg tablet,chewable 81 mg PO DAILY RF: 0 multivitamin Tablet 1 tab PO DAILY RF: 0 Novolin N Flexpen 100 unit/mL (3 mL) insulin pen 25 unit subcut BID RF: 0 Novolin R Regular U-100 Insuln 100 unit/mL solution 25 unit subcut BID RF: 0 atenolol 50 mg tablet 50 mg PO DAILY RF: 0 lisinopril 40 mg tablet 40 mg PO DAILY RF: 0 atorvastatin 20 mg tablet 20 mg PO QHS Qty: 30 RF: 12 Referrals / Follow Up: SIXTO JIMENEZ [Other] Carlos Rondon MD [STAFF PHYSICIAN] - 03/14/21 9:00 am (Apt is with Toy Gonzales ) Disposition Disposition (needs filled in before D/C Order can be placed): Home, Self Care
== END 2021-02-23 08:39 | disposition home or self-care (01) ==
LOC: CLSP 07:51 → PCU 15:10
PROVIDERS: Specialist; Referring Provider Internal Medicine Cardiovascular Disease; Visit Provider Internal Medicine Cardiovascular Disease
DX: I25.810 Atherosclerosis of coronary artery bypass graft(s) without angina pectoris (principal); I10 Essential (primary) hypertension; I34.1 Nonrheumatic mitral (valve) prolapse; E66.01 Morbid (severe) obesity due to excess calories; Z68.42 Body mass index [BMI] 45.0-49.9, adult; E78.5 Hyperlipidemia, unspecified; E78.00 Pure hypercholesterolemia, unspecified; Z85.42 Personal history of malignant neoplasm of other parts of uterus; Z79.82 Long term (current) use of aspirin; Z79.899 Other long term (current) drug therapy
CPT/HCPCS: 36415; 80053; 82962; 85025; 85027; 92928; 93005; 93458; 93571; 99152; 99153; C1874; J0153; J7030; J7040; Q9967; C1725; C1769; C1887; C1894; C9600

== ENCOUNTER → 2021-10-26 | Outpatient (CLI) | payer MEDICARE, BC, SELFPAY ==
--- NOTE | 2021-10-26 10:02 | CDU_ITS ---
Reason For Study: amaurosis fugax Rt. Velocities/BP Lt. Velocities/BP Prox CCA 60.4/9.5 cm/sec. Prox CCA 104.0/18.0 cm/sec. Mid CCA 74.7/9.5 cm/sec. Mid CCA 95.4/20.4 cm/sec. Dist CCA 51.2/6.9 cm/sec. Dist CCA 102.7/21.7 cm/sec. Prox ICA 137.5/26.1 cm/sec. Prox ICA 129.0/30.4 cm/sec. Mid ICA 409.1/164.4 cm/sec. Mid ICA 147.3/39.5 cm/sec. Dist ICA 443.0/145.6 cm/sec. Dist ICA 194.5/43.1 cm/sec. Rt. ICA/CCA = 5.9. Lt. ICA/CCA = 2.0. Prox ECA 121.1/9.7 cm/sec. Prox ECA 192.3/10.2 cm/sec. Rt. Vert. 80.5/19.0 cm/sec. Lt. Vert. 76.6/19.4 cm/sec. Right Extracranial There is heterogeneous, irregular atherosclerotic plaque noted in the right common carotid artery. There is heterogeneous, irregular atherosclerotic plaque noted in the right internal carotid artery. There is homogeneous, smooth atherosclerotic plaque noted in the right external carotid artery. Antegrade flow is noted in the right vertebral artery. Left Extracranial There is heterogeneous, smooth atherosclerotic plaque noted in the left common carotid artery. There is heterogeneous, irregular atherosclerotic plaque noted in the left internal carotid artery. The left internal carotid artery is very tortuous. There is heterogeneous, irregular atherosclerotic plaque noted in the left external carotid artery. Antegrade flow is noted in the left vertebral artery. Procedure Carotid Duplex [id number]. This is a Carotid Duplex examination using B-mode, color flow and specral Doppler. The exam was diagnostic. Difficult study due to pt body habitus. Prelim called to Dr. Danielson. Exam performed in department. VL/Carotid Duplex Ultrasound Interpretation Summary Extensive plaque at the proximal right internal carotid artery with near occlus ion. Less than 50% stenosis right external carotid artery Irregular calcific plaque with shadowing at the proximal left internal carotid artery with 50 to 69% stenosis. Less than 50% stenosis left external carotid artery Patent and antegrade vertebral arteries bilaterally Notable change bilaterally from the remote study of June 23, 2005 Ordering Physician: Isaac Danielson Referring Physician: Isaac Danielson Performed By: Chaim York, RVT
== END | disposition home or self-care (01) ==
LOC: CVS 10:01
PROVIDERS: Referring Provider Ophthalmology; Visit Provider Ophthalmology
DX: G45.3 Amaurosis fugax (principal)
CPT/HCPCS: 93880

== ENCOUNTER → 2021-11-28 | Outpatient (CLI) | payer MEDICARE, BC, SELFPAY ==
--- NOTE | 2021-11-28 14:53 | CT_ITS ---
We are attempting to reach an attending provider to discuss findings. An addendum with communication details will be sent when the communication is complete. STUDY: CTA NECK WITH CONTRAST REASON FOR EXAM: Female, 76 years old. Carotid stenosis bilaterally. RADIATION DOSAGE (If Supplied By Facility): CTDIvol = ( 18.08 ) mGy, DLP = ( 622.88 ) mGycm TECHNIQUE: CT angiography with multi-detector data acquisition was performed from the aortic arch to the skull base following intravenous administration of 100 mL Isovue-370. MIP images were reconstructed from the axial data set. Post-processing of the angiographic images was performed, with multiplanar reformation and 3D reconstruction. Individualized dose optimization techniques were used for this CT. COMPARISON: Carotid ultrasound October 26, 2021. FINDINGS: AORTIC ARCH: Normal visualized aortic arch. Normal origins of the brachiocephalic, left common carotid, and left subclavian arteries. RIGHT CAROTID ARTERIES: Normal right common carotid artery (CCA). There is moderate atherosclerotic calcification of the right common carotid bulb. Atherosclerotic calcification of the proximal 2.9 cm and the right internal carotid artery 90% stenosis using NASCET criteria. Normal visualized cervical portion of the right internal carotid artery. Normal origin of the right external carotid artery (ECA). LEFT CAROTID ARTERIES: Normal left common carotid artery (CCA). Moderate atherosclerotic calcification left common carotid bulb. There is atherosclerotic calcification of the origin with a 60% stenosis using NASCET criteria. Normal visualized cervical portion of the left internal carotid artery. Normal origin of the left external carotid artery (ECA). VERTEBRAL ARTERIES: Normal bilateral vertebral arteries. CT/CTA Neck W/WO Contrast IMPRESSION: 90% stenosis of the proximal right internal carotid artery. 60% stenosis of the proximal left internal carotid artery. Normal bilateral vertebral arteries. Electronically Signed: Kenn Del Angel MD at 8:12 EDT Reading Location ID and State: [id number] / , Service support ,
[2021-11-28 15:31] LABS: CREATININE FINGERSTICK 1.4 mg/dL (0.55-1.02)
== END | disposition home or self-care (01) ==
LOC: CT 14:52
PROVIDERS: Referring Provider Surgery Vascular Surgery; Visit Provider Surgery Vascular Surgery
DX: I65.23 Occlusion and stenosis of bilateral carotid arteries (principal); E11.9 Type 2 diabetes mellitus without complications; E78.00 Pure hypercholesterolemia, unspecified; I10 Essential (primary) hypertension
CPT/HCPCS: 70498; Q9967

== ENCOUNTER → 2021-12-01 | Outpatient (CLI) | payer MEDICARE, BC, SELFPAY ==
--- NOTE | 2021-12-01 13:13 | STRESSREP ---
Stress Test Report Date: 12-01-2021 Procedure: Pharmacologic stress nuclear imaging study Indications: Abnormal ECG; CAD; PCI; preoperative cardiovascular evaluation Consent: Per the patient Procedure: The patient underwent pharmacologic (Regadenoson 0.4mg ) evaluation with a peak heart rate of 88 beats per minute (60%predicted maximal heart rate) and a peak blood pressure of 138/89 mmHg. The baseline ECG demonstrated sinus rhythm. The peak pharmacologic ECG demonstrated no obvious ECG changes. There were no cardiac dysrhythmias pretest, during pharmacologic infusion, or recovery. There was no complaint of chest discomfort during pharmacologic infusion or recovery. The examination was discontinued secondary to completion of protocol. Impression: 1. Pharmacologic (Regadenoson) evaluation 2. Peak pharmacologic ECG with no obvious ECG changes. 3. There were no cardiac dysrhythmias pretest, during pharmacologic infusion, or recovery. 4. Nuclear images pending Myocardial perfusion imaging study: Technique: The patient was injected with 14.1 millicuries of technetium 99m Cardiolite and subsequently rest SPECT Cardiolite nuclear imaging was obtained in the horizontal long, vertical long, and short axis views. The patient underwent pharmacologic (Regadenoson) evaluation with a peak heart rate of 88 beats per minute (60% percent predicted maximal heart rate) and a peak blood pressure of 138/89 mmHg. The patient was injected with 44.1 millicuries of technetium 99m Cardiolite and subsequently stress SPECT Cardiolite nuclear imaging was obtained in the horizontal long, vertical long, and short axis views. A gated Cardiolite study at peak stress was obtained. Interpretation: Rest and stress SPECT Cardiolite nuclear imaging status post realignment, normalization, and attenuation correction demonstrate the appearance of a small area of subtle diminished tracer uptake in the apical segments without significant change between rest and stress. There is end systolic thickening and brightening. The gated Cardiolite study demonstrates myocardial thickening and inward wall motion. The reported LVEF is 80%. Impression: 1. Rest and stress SPECT current nuclear imaging demonstrate myocardial perfusion changes appearing compatible with the effects of physiologic apical thinning with no myocardial perfusion changes considered diagnostic for associated stress-induced myocardial ischemia. 2. The gated Cardiolite study reports an LVEF of 80%. This note was generated with [employer] software. It may contain incorrect words, spelling, and punctuation that were not noted in checking the note before signing.
== END | disposition home or self-care (01) ==
LOC: CVS 06:03
PROVIDERS: Visit Provider Nurse Practitioner Gerontology
DX: Z01.810 Encounter for preprocedural cardiovascular examination (principal); R94.31 Abnormal electrocardiogram [ECG] [EKG]
CPT/HCPCS: 78452; 93017; A9500; A4216; J2785

== ENCOUNTER → 2022-11-17 | Outpatient (CLI) | payer MEDICARE, BC, SELFPAY ==
[2022-11-17 11:06] LABS: PTHIN 103.2 pg/mL (18.4-80.1)
[2022-11-17 11:08] LABS: Vitamin D,25 Hydroxy 41.3 ng/mL
== END | disposition home or self-care (01) ==
PROVIDERS: Referring Provider Nurse Practitioner Family; Visit Provider Nurse Practitioner Family
DX: E21.3 Hyperparathyroidism, unspecified (principal)
CPT/HCPCS: 36415; 82306; 83970